=== PATIENT | female | born 1975 | race Caucasian/White ===

== ENCOUNTER 2018-06-25 19:27 | Emergency (ER) | payer OTHER ==
[~2018-06-25] VITALS: Ht 162.6 cm; Wt 125.6 kg
--- OUTSIDE RECORDS SUMMARY | 2018-06-25 19:29 | XMS REPORT | Continuity of Care Document ---
Author Author [facility] Address Unknown Phone Unavailable Problems Problem Status Onset Date Classification Date Reported Comments Source Streptococcal sore throat 12/27/2015 Diagnosis 01/30/2016 [facility] Streptococcal Sore Throat Problem 01/30/2016 [facility] Otitis Media Problem 01/30/2016 [facility] Allergic Rhinitis Problem 01/30/2016 [facility] Medications Medication Details Route Status Patient Instructions Ordering Provider Order Date Source Azithromycin 250 MG Oral Tablet azithromycin 250 mg tablet TAKE 2 TABLETS BY MOUTH TODAY, THEN TAKE 1 TABLET DAILY FOR 4 DAYS Active [facility] doxycycline hyclate 100 MG Oral Capsule doxycycline hyclate 100 mg capsule TAKE 1 CAPSULE(S) TWICE A DAY BY ORAL ROUTE WITH MEALS FOR 10 DAYS. Active [facility] levocetirizine dihydrochloride 5 MG Oral Tablet levocetirizine 5 mg tablet TAKE 1 TABLET(S) EVERY DAY BY ORAL ROUTE AT BEDTIME FOR 30 DAYS. Active [facility] Prednisone 20 MG Oral Tablet prednisone 20 mg tablet TAKE 1 TABLET BY MOUTH TWICE A DAY FOR 5 DAYS Active [facility] Allergies, Adverse Reactions, Alerts Substance Category Reaction Severity Reaction type Status Date Reported Comments Source Penicillins Other Moderate Allergy to substance 08/09/2015 [facility] Immunizations Immunization Date Given Site Status Last Updated Comments Source influenza, seasonal, injectable 03/15/2015 completed [facility] Results Order Name Results Value Reference Range Date Interpretation Comments Source RESULT positive 12/27/2015 [facility] SWAB LOCATION Left and Right tonsillar pillars 12/27/2015 [facility] Vital Signs Vital Sign Value Date Comments Source Diastolic (mm Hg) 80 12/27/2015 [facility] Height 64 12/27/2015 [facility] Systolic (mm Hg) 130 12/27/2015 [facility] Weight 271 12/27/2015 [facility] Encounters Location Location Details Encounter Type Encounter Number Reason For Visit Attending Provider ADM Date DC Date Status Source [place] - [id number]: [address] [place] [address], Ph. [phone] [id number] Sharona Amaral 12/27/2015 [facility] Procedures Procedure Code Date Perfomer Comments Source
--- OUTSIDE RECORDS SUMMARY | 2018-06-25 19:29 | XMS REPORT | Encounter Summary ---
Author Organization Unknown Address [address] [place] [address] Phone [phone] Reason for Visit Medical Complaint Instructions 1. Streptococcal sore throat rapid strep group A, throat strep throat: care instructions Zithromax Z-Dilip 250 mg tablet Discussion Note: None recorded. Plan of Care Patient Instructions Try warm salt water gargles, throat lozanges, soups ortea with honey and/or lemon juice to soothe the throat.Take ibuprofen or tylenolevery 6 hours as needed for sore throat.Change out yourtoothbrush tomorrow or when you start to feel better. Follow up with PCP/UC/ER if symptoms getworse or no improvement in 3 to 4 days. Patient verbalizes understanding and agrees to the plan. Reminders Provider Appointments None recorded. Lab Rapid Strep Group a, Throat 12/27/2015 [facility] Referral None recorded. Procedures None recorded. Surgeries None recorded. Imaging None recorded. Medications Name Start Date azithromycin 250 mg tablet TAKE 2 TABLETS BY MOUTH TODAY, THEN TAKE 1 TABLET DAILY FOR 4 DAYS doxycycline hyclate 100 mg capsule TAKE 1 CAPSULE(S) TWICE A DAY BY ORAL ROUTE WITH MEALS FOR 10 DAYS. levocetirizine 5 mg tablet TAKE 1 TABLET(S) EVERY DAY BY ORAL ROUTE AT BEDTIME FOR 30 DAYS. prednisone 20 mg tablet TAKE 1 TABLET BY MOUTH TWICE A DAY FOR 5 DAYS Medications Administered None recorded. Vitals Height Weight BMI Blood Pressure 5 ft 4 in 271 lbs 46.5 130/80 Lab Results Date Name Result Description Value Range Status Rapid Strep Group a, Throat Result positive Swab Location Left and Right tonsillar pillars Allergies Name Reaction Severity Onset Penicillins Other Moderate Problems Name Status Onset Date Source Streptococcal Sore Throat Active Encounter Otitis Media Active Encounter Allergic Rhinitis Active Encounter Procedures None recorded. Vaccine List Vaccine Type influenza, seasonal, injectable 03/14/2015 Social History Smoking Status Former Smoker Past Encounters 12/27/2015 Streptococcal Sore Throat SERAFIN Díaz: [address] [facility], [place] [address], Ph. History of Present Illness Throat-Oral Complaint Reported By: Patient HPI: Location: throat. Quality: sore throat. Duration: 3 days. Onset/Timing: sudden. Context: no sick contacts, no foreign travel, non-smoker. Modifying factors: OTC medication, salt water gargles. Associated Symptoms: no sputum production, no shortness of breath, no wheezing, no change in number of pillows needed to sleep at night, no sweats, no significant weight gain, no significant weight loss, no morning cough, no vomiting, no diarrhea, no rash, no nausea, sore throat Review of Systems Basic Reported By: Patient Constitutional: Constitutional: no fever Eyes: Eyes: no eye complaints Fxol-Eoie-Qnelg-Throat: Ears: no ear complaints. Nose: no nose/sinus problems. Mouth/Throat: no bleeding gums, no mouth complaints, no teeth problems, sore throat Cardiovascular: Cardiovascular: no chest pain, no shortness of breath, no known heart murmur Respiratory: Respiratory: no cough, no wheezing, no shortness of breath Gastrointestinal: Gastrointestinal: no abdominal pain, no vomiting / diarrhea Genitourinary: Genitourinary: no urinary complaints, no discharge Musculoskeletal: Musculoskeletal: no muscle aches, no muscle weakness, no arthralgias/joint pain, no back pain Skin: Skin: no abnormal / changing mole, no jaundice, no rashes Neurologic: Neurologic: no loss of consciousness, no weakness, no numbness, no seizures, no dizziness, no headaches Physical Exam Adult Basic, Adult Female Complete Constitutional: General Appearance: healthy-appearing, well-nourished, well-developed. Level of Distress: NAD. Ambulation: ambulating normally Psychiatric: Mental Status: active and alert. Orientation: to time, to place, to person Eyes: Lids and Conjunctivae: non-injected, no discharge, no pallor. Pupils: PERRLA. EOM: EOMI. Lens: clear. Sclerae: non-icteric Tqn-Jyuv-Dbjku-Throat: Ears: no lesions on external ear, no outer ear tenderness, EACs clear, TMs clear. Hearing: no hearing loss. Nose: no lesions on external nose, nares patent, no septal deviation, nasal passages clear, no sinus tenderness, no nasal discharge. Lips, Teeth, and Gums: no mouth or lip ulcers, no bleeding gums, normal dentition. Oropharynx: moist mucous membranes, erythema, exudates, tonsils enlarged 2+ Neck: Neck: supple. Lymph Nodes: anterior cervical LAD Lungs: Respiratory effort: no dyspnea, no tachypnea, no use of accessory muscles. Auscultation: breath sounds normal Cardiovascular: Heart Auscultation: RRR, no murmurs Neurologic: Gait and Station: normal gait Skin: Inspection and palpation: no rash, no lesions
[2018-06-25] MEDS ORDERED: TETANUS/DIPHTHERIA TOX ADULT 0.5 ML SYR IM STA (20:12)
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
== END 2018-06-25 23:00 | disposition home or self-care (01) ==
LOC: FSED 19:27
DX: M54.2 Cervicalgia (principal); S16.1XXA Strain of muscle, fascia and tendon at neck level, initial encounter; S30.1XXA Contusion of abdominal wall, initial encounter; V43.52XA Car driver injured in collision with other type car in traffic accident, initial encounter; Y92.488 Other paved roadways as the place of occurrence of the external cause
CPT/HCPCS: 71046; 72125; 74176; 90714; 99283